=== PATIENT | male | born 1990 | race Hispanic/Latino ===

== ENCOUNTER 2019-02-06 19:23 | Emergency (ER) | payer OTHER ==
[2019-02-06 19:35] VITALS: BP 148/89; PULSE 102; RESP 18; TEMP 98.6; O2SAT 98
--- NOTE | 2019-02-06 21:09 | ED PDOC ---
HPI: Chest Pain Time Seen by Provider: 02/06/19 20:26 Chief Complaint (Nursing): Chest Pain Chief Complaint (Provider): Chest Pain History Per: Patient History/Exam Limitations: no limitations Onset/Duration Of Symptoms: Intermittent Episodes (x2 days) Current Symptoms Are (Timing): Still Present Additional Complaint(s): 28 year old male with no significant medical history, is referred to the emergency department from [facility] for an evaluation of intermittent chest pain for 2 days. He reports pain is worse with deep breathing. EKG at [facility] showed findings of nonspecific changes, however, he denies any nausea, vomiting, or diaphoresis. Patient states he took an Advil which provided alleviation. He reports a similar episode in the past that resolved spontaneously with NSAIDS. He further denies smoking or cocaine use. Past Medical History Reviewed: Historical Data, Nursing Documentation, Vital Signs Vital Signs: Last Vital Signs Temp 98.6 F 02/06/19 19:43 Pulse 102 H 02/06/19 19:43 Resp 18 02/06/19 19:43 BP 148/89 02/06/19 19:43 Pulse Ox 98 02/06/19 19:43 Primary Care Provider: FAMILY PROVIDER,NO - Medical History PMH: No Chronic Diseases - Surgical History Surgical History: No Surg Hx - Family History Family History: States: CAD (father at a late age) - Allergies Allergies/Adverse Reactions: Allergies Allergy/AdvReac Type Severity Reaction Status Date / Time morphine Allergy RASH Verified 02/06/19 19:35 Review of Systems ROS Statement: Except As Marked, All Systems Reviewed And Found Negative Constitutional: Negative for: Sweats Cardiovascular: Positive for: Chest Pain Gastrointestinal: Negative for: Nausea, Vomiting Physical Exam - Reviewed Nursing Documentation Reviewed: Yes Vital Signs Reviewed: Yes - Physical Exam Appears: Positive for: Well, Non-toxic, No Acute Distress Head Exam: Positive for: ATRAUMATIC, NORMAL INSPECTION, NORMOCEPHALIC Skin: Positive for: Normal Color. Negative for: Pallor Eye Exam: Positive for: Normal appearance, EOMI, PERRL ENT: Positive for: Normal ENT Inspection Neck: Positive for: Normal Cardiovascular/Chest: Positive for: Regular Rate, Rhythm, Chest Non Tender. Negative for: Murmur, Bradycardia, Tachycardia Respiratory: Positive for: Normal Breath Sounds. Negative for: Wheezing, Respiratory Distress Gastrointestinal/Abdominal: Positive for: Normal Exam, Soft. Negative for: Tenderness Extremity: Positive for: Normal ROM (upper/lower). Negative for: Pedal Edema, Calf Tenderness Neurological/Psych: Positive for: Awake, Alert, Normal Tone, Symmetric/Intact Strength (5/5), Oriented (x3). Negative for: Motor/Sensory Deficits - ECG O2 Sat by Pulse Oximetry: 98 (RA) Pulse Ox Interpretation: Normal Medical Decision Making Medical Decision Making: Initial Impression: 28 year old male with chest pain. Initial Plan: * EKG * Labs Time: 2100 --At this time, patient is choosing to leave against medical advice. The provider has personally explained to the patient that choosing to do so may result in permanent bodily harm or . The provider discussed at great length that without further evaluation and monitoring there may be unforeseen circumstances and/or deterioration causing permanent bodily harm or as a result of their choice. The patient verbalized these risks back to the physician in laymans terms. The patient is alert, oriented, and shows the mental capacity to make clear decisions regarding the patient's health care at this time. The patient continues to wish to leave against medical advice. In light of the patients decision to leave AMA, follow-up has been arranged and the patient is aware of the importance of following up as instructed. The patient has been advised that they should return to the ED immediately if they change their mind at any time, or if their condition b egins to change or worsen in any way. Scribe Attestation: Documented by Evelyn Mclaughlin, acting as a scribe for Gerardo Hunter MD. Provider Scribe Attestation: All medical record entries made by the Scribe were at my direction and personally dictated by me. I have reviewed the chart and agree that the record accurately reflects my personal performance of the history, physical exam, medical decision making, and the department course for this patient. I have also personally directed, reviewed, and agree with the discharge instructions and disposition. Disposition - Clinical Impression Clinical Impression: Atypical chest pain - Disposition Disposition: Against Medical Advice Disposition Time: 21:00 Condition: STABLE Forms: [employer] ([employer])
--- NOTE | 2019-02-07 19:17 | CARD ---
APPROVED REPORT Date of service: 02/06/2019 EKG Measurement Heart [id number] <Conclusion> Sinus tachycardia Left ventricular hypertrophy Abnormal ECG
== END 2019-02-06 20:55 | disposition left against medical advice (07) ==
LOC: H.ER 19:23
DX: R07.89 Other chest pain (principal)